=== PATIENT | male | born 1990 | race Caucasian/White ===

== ENCOUNTER 2016-07-08 17:33 | Emergency (ER) | payer OTHER ==
[2016-07-08] MEDS ORDERED: HYDROCOD/APAP 5/325 PREPACK#6 BTL TAKEHOME ONE (18:04)
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
[2016-07-08 18:16] VITALS: BP 157/92; PULSE 101; RESP 18; TEMP 97.7; O2SAT 97
== END 2016-07-08 18:16 | disposition home or self-care (01) ==
LOC: CED 17:33
DX: S16.1XXA Strain of muscle, fascia and tendon at neck level, initial encounter (principal); V49.60XA Unspecified car occupant injured in collision with unspecified motor vehicles in traffic accident, initial encounter
CPT/HCPCS: 99214-PO; G0463-PO